=== PATIENT | male | born 1975 | race Caucasian/White ===

== ENCOUNTER 2024-06-13 09:17 | Emergency (ER) | payer OTHER ==
[~2024-06-13] VITALS: Ht 165.1 cm; Wt 93.0 kg
[2024-06-13] MEDS ORDERED: METOPROLOL SUCC25 M1 (09:45)
[2024-06-13] MEDS ORDERED: COZAAR25 M1 (09:45)
[2024-06-13] MEDS ORDERED: LEVOTHYROXINE25 MCG (09:46)
[2024-06-13] MEDS ORDERED: ASPIRIN E.C. 8181 MG PO (09:46)
[2024-06-13] MEDS ORDERED: PANTOPRAZOLE SO40 MG (09:46)
[2024-06-13 10:20] LABS: BASO # 0.03 K/mm3 (0.02-0.10); EOS # 0.01 K/mm3 (0.04-0.40); EOS % 0.1 % (0.0-4.0); HEMATOCRIT 42.8 % (42.0-52.0); HEMOGLOBIN 14.2 g/dL (13.5-18.0); LYMPH# 1.18 K/mm3 (1.50-4.00); MEAN CELL VOLUME 89 fl (78-100); MEAN CORPUSCULAR HEMOGLOBIN 30 pg (27-31); MEAN CORPUSCULAR HGB CONC 33 g/dL (33-37); MEAN PLATELET VOLUME 9.8 fl (7.4-10.4); MONO # 1.42 K/mm3 (0.20-0.80); NEU # 5.03 K/mm3 (1.40-6.50); PLATELET COUNT 275 K/mm3 (130-400); RED BLOOD COUNT 4.81 M/mm3 (4.20-5.60); WHITE BLOOD COUNT 7.7 K/mm3 (4.8-10.8)
[2024-06-13 10:23] LABS: ALBUMIN 3.8 g/dL (3.5-5.0)
[2024-06-13 10:24] LABS: CALCIUM 8.8 mg/dL (8.3-10.5)
[2024-06-13 10:26] LABS: TOTAL PROTEIN 8.4 g/dL (6.4-8.3)
[2024-06-13 10:27] LABS: TOTAL BILIRUBIN 0.4 mg/dL (0.2-1.2)
[2024-06-13] MEDS ORDERED: NS 1,000 ML IV SCH (10:45)
[2024-06-13] MEDS ORDERED: ZOFRAN ODT4 MG PO (12:29)
[2024-06-13] MEDS ORDERED: GUAIFEN-CODEIN118 ML PO (12:29)
[2024-06-13 12:49] VITALS: BP 147/93
== END 2024-06-13 12:51 | disposition home or self-care (01) ==
LOC: ED 09:17
PROVIDERS: Family Medicine
DX: J10.1 Influenza due to other identified influenza virus with other respiratory manifestations (principal); I12.9 Hypertensive chronic kidney disease with stage 1 through stage 4 chronic kidney disease, or unspecified chronic kidney disease; N18.9 Chronic kidney disease, unspecified; I95.1 Orthostatic hypotension; E86.9 Volume depletion, unspecified
CPT/HCPCS: J7030